=== PATIENT | female | born 2000 | race American Indian/Alaskan Native ===

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

== ENCOUNTER 2022-04-12 16:19 | Inpatient (IN) | payer OTHER ==
[2022-04-12] MEDS ORDERED: LOPERAMIDE 2 MG CAP PO PRN (16:58)
[2022-04-12] MEDS ORDERED: ePHEDrine SULFATE 50 MG/1 ML INJ IV PRN ×2 (16:58→21:55)
[2022-04-12] MEDS ORDERED: ONDANSETRON 4 MG/2 ML INJ IV PRN (16:58)
[2022-04-12] MEDS ORDERED: DINOPROSTONE 10 MG VAG SUPP VG SCH (16:58)
[2022-04-12] MEDS ORDERED: OXYTOCIN 10 UNIT/1 ML INJ IM PRN (16:58)
[2022-04-12] MEDS ORDERED: miSOPROStol 200 MCG TAB PR PRN (16:58)
[2022-04-12] MEDS ORDERED: TERBUTALINE 1 MG/1 ML INJ SUB-Q PRN (16:58)
[2022-04-12] MEDS ORDERED: LIDOCAINE (2%) 20 MG/1 ML VIAL 20 ML MDV INFILTRATI ONE (16:58)
[2022-04-12] MEDS ORDERED: CARBOPROST TROMETHAMINE 250 MCG/1 ML INJ IM PRN (16:58)
[2022-04-12] MEDS ORDERED: METHYLERGONOVINE MALEATE 0.2 MG/ML VIAL IM PRN (16:58)
[2022-04-12] MEDS ORDERED: MINERAL OIL 30 ML ORAL LIQD PO PRN (16:58)
[2022-04-12] MEDS ORDERED: ACETAMINOPHEN 325 MG TAB PO PRN (16:58)
[2022-04-12] MEDS ORDERED: BUTORPHANOL 2 MG/1 ML INJ IV PRN ×2 (16:58)
--- NOTE | 2022-04-12 16:58 | History and Physical Report ---
History of Present Illness Date of examination: 04/12/22 Date of admission: Mar Chief complaint: Here for induction of labor History of present illness: 21 y/o with care at [facility] [employer]. Was seen at [facility] today and it was recommended that she be delivered with Hx of severe IUGR. Past History Past Medical History: no pertinent history Past Surgical History: no surgical history [employer]LEVEL PROVIDER History: chlamydia, gonorrhea, herpes Family/Genetic History: none Social history: no significant social history - Obstetrical History Expected Date of Delivery: 05/02/22 Actual Gestation: 37 Week(s) 1 Day(s) : 3 Number of Living Children: 1 Medications and Allergies Allergies Allergy/AdvReac Type Severity Reaction Status Date / Time No Known Allergies Allergy Verified 05/08/17 08:14 Home Medications Medication Instructions Recorded Confirmed Last Taken Type No Known Home Medications [No 05/08/17 05/08/17 Unknown History Reported Home Medications] Review of Systems All systems: negative - Physical Exam Breasts: Positive: deferred Cardiovascular: Regular rate Lungs: Positive: Clear to auscultation Genitourinary (Female): Positive: normal external genitalia Adnexa: both: normal - Obstetrical FHR: category 1 Uterine Contraction Monitor Mode: External Cervical Dilatation: 4 Cervical Effacement Percentage: 80 station: -1 Uterine Contraction Pattern: Irregular Uterine Contraction Intensity: Mild Results All other labs normal. Assessment and Plan A: IUP @ 37 weeks with IUGR P: Pitocin induction Expect
[2022-04-12] MEDS ORDERED: OXYTOCIN DRIP 30 UNITS/500 ML BAG IV SCH ×2 (17:00)
[2022-04-12] MEDS ORDERED: LACTATED RINGERS 1,000 ML IV SCH (17:00)
[2022-04-12 18:55] LABS: Hematocrit 30.1 % (30.3-42.9); Hemoglobin 10.3 gm/dl (10.1-14.3); Mean Corpuscular HGB Conc 34 % (30-34); Mean Corpuscular Volume 98 fl (79-97); Platelet Count 236 K/mm3 (140-440); Red Blood Count 3.07 M/mm3 (3.65-5.03); Red Cell Distribution Width 12.5 % (13.2-15.2)
[2022-04-12] MEDS ORDERED: fentaNYL-BUPIV 2 MCG/ML-0.125% 200 MCG/100 ML BAG EPIDURAL SCH (21:55)
[2022-04-12] MEDS ORDERED: NALOXONE 0.4 MG/1 ML INJ IV PRN (21:55)
--- NOTE | 2022-04-12 21:57 | Anesthesia Consultation ---
Anesthesia Consult and Med Hx Date of service: 04/12/22 - Airway Anesthetic Teeth Evaluation: Good ROM Head & Neck: Adequate Mental/Hyoid Distance: Adequate Mallampati Class: Class II Intubation Access Assessment: Probably Good - Pulmonary Exam CTA: Yes - Cardiac Exam Cardiac Exam: RRR - Pre-Operative Health Status ASA Pre-Surgery Classification: ASA2 Proposed Anesthetic Plan: Epidural - Pulmonary Hx Smoking: No Hx Asthma: Yes (last used months ago) Hx Respiratory Symptoms: No SOB: No COPD: No Home Oxygen Therapy: No Hx Pneumonia: No Hx Sleep Apnea: No - Cardiovascular System Hx Hypertension: No Hx Coronary Artery Disease: No Hx Heart Attack/AMI: No Hx Angina: No Hx Percutaneous Transluminal Coronary Angioplasty (PTCA): No Hx Cardia Arrhythmia: No Hx Pacemaker: No Hx Internal Defibrillator: No Hx Valvular Heart Disease: No Hx Heart Murmur: No Hx Peripheral Vascular Disease: No - Central Nervous System Hx Neuromuscular Disorder: No Hx Seizures: No CVA: No Hx Back Pain: No Hx Psychiatric Problems: Yes (depression no meds at this time) - Gastrointestinal Hx Ulcer: No Hx Gastroesophageal Reflux Disease: No - Endocrine Hx Renal Disease: No Hx End Stage Renal Disease: No Hx Cirrhosis: No Hx Liver Disease: No Hx Insulin Dependent Diabetes: No Hx Non-Insulin Dependent Diabetes: No Hx Thyroid Disease: No Hx Hypothyroidism: No Hx Hyperthyroidism: No - Hematic Hx Anemia: Yes (takes iron daily) Hx Sickle Cell Disease: No - Other Systems Hx Alcohol Use: No Hx Substance Use: No Hx Cancer: No Hx Obesity: No
--- NOTE | 2022-04-12 21:57 | Anesthesia Day of Surgery ---
Anesthesia Day of Surgery - Day of Surgery Patient Examined: Yes Patient H&P Reviewed: Yes Patient is NPO: Yes Beta Blockers: No Cardiac Clearance: No Pulmonary Clearance: No Dejon's Test: N/A
--- NOTE | 2022-04-12 21:57 | Progress Note ---
Labor Epidural - Labor Epidural Start Time: 21:30 Stop Time: 21:39 Performed by:: ALAINA MOCK Procedure: Epidural Requested for Labor Pain. H&P and PT Chart reviewed and consent obtained. Time out performed and the procedure was explained, all questions answered. Patient was placed in a sitting position with monitors applied. The PTs back was prepped and draped in usual sterile fashion. The Skin was localized with 3 mL of 1% lidocaine at L3-L4. A 17-gauge Touhy epidural needle was advanced to AROLDO with saline at 7 cm and no blood/CSF was noted via epidural needle. Epidural catheter was advanced to 12 cm. There was negative aspiration for blood and CSF in the catheter and negative response to a test dose of 3 ml 1.5% lidocaine w/ Epi and a sterile dressing was applied Patient tolerated the procedure well and there were no immediate complications noted.
--- NOTE | 2022-04-13 02:27 | Procedure Note ---
OB Delivery Note - Delivery Date of Delivery: 04/13/22 Surgeon: HUBERT GALVIN Estimated blood loss: 300cc - Vaginal Delivery presentation: vertex Delivery position: OA Intrapartum events: other(please specify) (1.) 37-2/7 weeks, 2.) growth restriction) Delivery induction: oxytocin Delivery augmentation: pitocin Delivery monitor: external FHT, external uterine Route of delivery: Delivery placenta: spontaneous Delivery cord: 3 umbilical vessels Episiotomy: none Delivery laceration: none Anesthesia: epidural - Infant A at 1 minute: 8 at 5 minutes: 9 Infant Gender: Male
[2022-04-13] MEDS ORDERED: MAGNESIUM HYDROXIDE (MOM) ORAL LIQD UDC PO PRN (02:29)
[2022-04-13] MEDS ORDERED: LANOLIN/ZINC/DIMETHICONE (LANSINOH) 7 GM TP PRN (02:29)
[2022-04-13] MEDS ORDERED: WITCH HAZEL/ GLYCERIN PAD TP PRN (02:29)
[2022-04-13] MEDS ORDERED: ACETAMINOPHEN 325 MG TAB PO PRN (02:29)
[2022-04-13] MEDS ORDERED: BENZOCAINE/MENTHOL 20/0.5% TOP SPRAY 56 GM TP PRN (02:29)
[2022-04-13] MEDS ORDERED: IBUPROFEN 800 MG TAB PO SCH (03:00)
[2022-04-13] MEDS: IBUPROFEN 800 MG TAB PO SCH ×3 (04:24→20:55)
[2022-04-13] MEDS: DOCUSATE SODIUM 100 MG CAP PO SCH ×2 (10:15→23:05)
[2022-04-13] MEDS: PRENATAL VIT27-FE FUMARATE-FOLIC ACID VIT TAB PO SCH (10:15)
[2022-04-13] MEDS: HYDROcodone/ACETAMINOPHEN 5-325 MG TAB PO PRN ×3 (10:15→22:07)
[2022-04-13] MEDS: FERROUS SULFATE 325 MG TAB PO SCH (10:15)
[2022-04-14] MEDS: HYDROcodone/ACETAMINOPHEN 5-325 MG TAB PO PRN ×3 (04:06→16:11)
--- NOTE | 2022-04-14 05:58 | Post Anesthesia Evaluation ---
- Post Anesthesia Evaluation Patient Participated: No Airway Patent: Yes Stable Respiratory Function: Yes Nausea/Vomiting: No Temp > 96.8F: Yes Pain Manageable: Yes Adequeate Hydration: Yes Anesthesia Complications: No Block Receding Appropriately: Yes Patient on Ventilator: No
[2022-04-14] MEDS ORDERED: TETANUS,DIPH,PERTUSS(ACELL) VACCINE 0.5 ML SYRINGE IM ONE (06:00)
[2022-04-14] MEDS: FERROUS SULFATE 325 MG TAB PO SCH (09:37)
[2022-04-14] MEDS: PRENATAL VIT27-FE FUMARATE-FOLIC ACID VIT TAB PO SCH (09:37)
[2022-04-14] MEDS: DOCUSATE SODIUM 100 MG CAP PO SCH (09:37)
[2022-04-14 11:52] LABS: Hematocrit 31.5 % (30.3-42.9); Hemoglobin 10.7 gm/dl (10.1-14.3); Mean Corpuscular HGB Conc 34 % (30-34); Mean Corpuscular Volume 98 fl (79-97); Platelet Count 237 K/mm3 (140-440); Red Blood Count 3.22 M/mm3 (3.65-5.03); Red Cell Distribution Width 12.4 % (13.2-15.2)
--- NOTE | 2022-04-14 13:08 | Progress Note ---
Assessment and Plan A: PP Day #1 Stable P: Follow Routine Orders Depo Provera 150mg IM x 1 dose prior to discharge D/C in the AM RTO in 6 Weeks Subjective - Subjective Date of service: 04/14/22 Patient reports: appetite normal, voiding normally, pain well controlled, flatus, bowel movement, ambulating normally [place]: doing well, bottle feeding (and ) Objective - Vital Signs Latest vital signs: Vital Signs Temp Pulse Resp BP BP Pulse Ox 04/14/22 08:46 97.4 F L 75 18 128/75 100 04/14/22 02:14 98.4 F 74 18 111/61 99 04/13/22 23:04 98.3 F 67 16 109/62 97 04/13/22 17:40 98.1 F 81 18 129/70 Intake and Output 04/13/22 04/14/22 04/14/22 22:59 06:59 14:59 Intake Total 240 1080 Balance 240 1080 Intake: Oral 240 480 Intake, Free Water 600 Other: Total, Intake Amount 240 480 # Voids Void 1 3 # Bowel Movements 1 1 - Exam Breasts: Present: normal Cardiovascular: Present: Regular rate Lungs: Present: Clear to auscultation, Normal air movement Abdomen: Present: normal appearance, soft, normal bowel sounds Uterus: Present: normal, firm, fundal height below umbilicus Extremities: Present: normal - Labs Labs: Abnormal lab results 04/13/22 04/14/22 Range/Units 18:29 11:12 RBC 3.22 L (3.65-5.03) M/mm3 MCV 98 H (79-97) fl MCH 33 H (28-32) pg RDW 12.4 L (13.2-15.2) % POC Glucose 69 L (70-105) mg/dL
--- NOTE | 2022-04-14 13:09 | Discharge Summary ---
Providers - Providers Date of Admission: 04/13/22 02:30 Date of discharge: 04/15/22 Attending physician: HUBERT GALVIN MD Primary care physician: HUBERT GALVIN MD Hospitalization Reason for admission: induction of labor Delivery: Episiotomy: none Laceration: none Other procedures: none complications: none Discharge diagnosis: IUP at term delivered baby: male Condition at discharge: Good Disposition: 01 HOME / SELF CARE / HOMELESS Plan - Provider Discharge Summary Activity: routine, no sex for 6 weeks, no heavy lifting 4 weeks, no strenuous exercise Diet: routine Instructions: routine Additional instructions: [] Smoking cessation referral if applicable(refer to patient education folder for contact #) [] Refer to [facility] Booklet Call your doctor immediately for: * Fever > 100.5 * Heavy vaginal bleeding ( >1 pad per hour) * Severe persistent headache * Shortness of breath * Reddened, hot, painful area to leg or breast * Drainage or odor from incision. * Keep incision clean and dry at all times and follow doctor's instructions regarding bathing/showering - Follow up plan Follow up: HUBERT GALVIN MD [Primary Care Provider] - 6 Weeks
[2022-04-14] MEDS ORDERED: medroxyPROGESTERone ACETATE 150 MG/ML SYRINGE IM NR (13:30)
[2022-04-14] MEDS: IBUPROFEN 800 MG TAB PO SCH (19:45)
[2022-04-15] MEDS: HYDROcodone/ACETAMINOPHEN 5-325 MG TAB PO PRN ×2 (00:24→07:43)
[2022-04-15] MEDS: DOCUSATE SODIUM 100 MG CAP PO SCH ×2 (00:25→16:02)
[2022-04-15] MEDS: IBUPROFEN 800 MG TAB PO SCH ×2 (03:21→16:02)
[2022-04-15] MEDS: FERROUS SULFATE 325 MG TAB PO SCH (09:56)
[2022-04-15] MEDS: PRENATAL VIT27-FE FUMARATE-FOLIC ACID VIT TAB PO SCH (09:56)
[2022-04-15 16:49] VITALS: BP 125/88
== END 2022-04-15 15:55 | disposition home or self-care (01) | DRG 775 ==
LOC: TRG 16:19 → LD 16:21 → TRG 04-13 02:29 → LD 04-13 02:30 → OB 04-13 04:12
PROVIDERS: ADMIT Obstetrics & Gynecology Gynecology; ATTEND Obstetrics & Gynecology Gynecology
PROC: 10E0XZZ Delivery of Products of Conception, External Approach (ICD-10-PCS; principal; 2022-04-13)
PROC: 3E0S3BZ Introduction of Anesthetic Agent into Epidural Space, Percutaneous Approach (ICD-10-PCS; 2022-04-13)
PROC: 00HU33Z Insertion of Infusion Device into Spinal Canal, Percutaneous Approach (ICD-10-PCS; 2022-04-13)
PROC: 3E0234Z Introduction of Serum, Toxoid and Vaccine into Muscle, Percutaneous Approach (ICD-10-PCS; 2022-04-13)
DX: O36.5930 Maternal care for other known or suspected poor fetal growth, third trimester, not applicable or unspecified (principal); Z37.0 Single live birth; Z3A.37 37 weeks gestation of pregnancy; Z20.822 Contact with and (suspected) exposure to COVID-19; O99.02 Anemia complicating childbirth
CPT/HCPCS: 36415; 82962; 85027; 86850; 86900; 86901; 88307; 90471; 90715; G0378; J3490; J2590; J7120; U0003